=== PATIENT | female | born 1990 | race Two or more races ===

== ENCOUNTER 2016-05-22 17:14 | Emergency (ER) | payer SELFPAY ==
[~2016-05-22] VITALS: Ht 167.6 cm; Wt 94.6 kg
[2016-05-22 17:35] VITALS: BP 146/87
== END 2016-05-22 19:47 | disposition left against medical advice (07) ==
LOC: EME 17:14
DX: L08.9 Local infection of the skin and subcutaneous tissue, unspecified (principal); Z53.21 Procedure and treatment not carried out due to patient leaving prior to being seen by health care provider
CPT/HCPCS: 80053; 81003; 83690; 84702; 85025